=== PATIENT | male | born 1970 | race Caucasian/White ===

== ENCOUNTER 2018-01-06 09:05 | Outpatient (CLI) | payer BC ==
--- NOTE | 2018-01-06 19:04 | RAD ---
RIGHT KNEE FOUR VIEW 01/06/18 No fracture or joint effusion was seen. I am not impressed by any significant joint space narrowing o r osteophytes. IMPRESSION: No acute findings. POS: HOME
== END 2018-01-06 09:06 | disposition home or self-care (01) ==
LOC: BURRAD 09:05
PROVIDERS: ATTEND Family Medicine
DX: M17.11 Unilateral primary osteoarthritis, right knee (principal)